=== PATIENT | female | born 1930 | race Caucasian/White ===

== ENCOUNTER → 2017-01-12 | Outpatient (CLI) | payer MEDICARE, BC ==
[~2017-01-12] MED LIST: ASPI-496 PO; REGADENOSON 0.4 MG/5 ML SYRINGE ONE; ROSU20TA PO; UBID10CA5 PO
== END | disposition home or self-care (01) ==
LOC: CFH 11:08
PROVIDERS: ATTEND Internal Medicine Cardiovascular Disease
DX: R07.9 Chest pain, unspecified (principal); R06.02 Shortness of breath; R06.00 Dyspnea, unspecified
CPT/HCPCS: 78452; 93017; A9502; J2785

== ENCOUNTER → 2017-12-31 | Outpatient (CLI) | payer MEDICARE, BC ==
[~2017-12-31] MED LIST changes: -REGADENOSON 0.4 MG/5 ML SYRINGE ONE
== END | disposition home or self-care (01) ==
LOC: CVU 07:50
PROVIDERS: ATTEND Internal Medicine Cardiovascular Disease
DX: I65.23 Occlusion and stenosis of bilateral carotid arteries (principal); E78.5 Hyperlipidemia, unspecified; I35.0 Nonrheumatic aortic (valve) stenosis; Z95.2 Presence of prosthetic heart valve
CPT/HCPCS: 93880

== ENCOUNTER 2019-07-29 12:49 | Outpatient (CLI) | payer MEDICARE, BC ==
[~2019-07-29 12:49] MED LIST changes: -ROSU20TA PO; +ROSU20TA2 PO
== END 2019-07-29 23:59 | disposition home or self-care (01) ==
LOC: CFH 12:49
PROVIDERS: ATTEND Internal Medicine Cardiovascular Disease
DX: T82.03XA Leakage of heart valve prosthesis, initial encounter (principal); I08.8 Other rheumatic multiple valve diseases; Z85.3 Personal history of malignant neoplasm of breast; Y83.8 Other surgical procedures as the cause of abnormal reaction of the patient, or of later complication, without mention of misadventure at the time of the procedure; Y92.89 Other specified places as the place of occurrence of the external cause
CPT/HCPCS: 93306